=== PATIENT | female | born 1985 | race Caucasian/White ===

== ENCOUNTER 2020-07-26 13:50 | Emergency (ER) | payer OTHER ==
[~2020-07-26] VITALS: Ht 162.6 cm; Wt 59.0 kg
[2020-07-26 14:04] VITALS: Ht 162.6 cm; Wt 59.0 kg
[2020-07-26 17:26] VITALS: BP 114/70
== END 2020-07-26 17:26 | disposition home or self-care (01) ==
LOC: ED 13:50
DX: S16.1XXA Strain of muscle, fascia and tendon at neck level, initial encounter (principal); S09.8XXA Other specified injuries of head, initial encounter; Z90.49 Acquired absence of other specified parts of digestive tract; W22.8XXA Striking against or struck by other objects, initial encounter; Y93.89 Activity, other specified; Y92.89 Other specified places as the place of occurrence of the external cause; Y99.8 Other external cause status